=== PATIENT | female | born 1945 | race Caucasian/White ===

== ENCOUNTER 2016-09-04 13:46 | Emergency (ER) | payer BC, MEDICARE ==
[~2016-09-04] VITALS: Ht 157.5 cm; Wt 48.5 kg
[~2016-09-04 13:46] MED LIST: ALPR0.25 PO; ASPI81TA2 PO; Aspirin PO; CARV3.12 PO; CARV3.122 PO; CHOL10002 PO; CITA40TA5 PO; CLON1TAB PO; CLOP75TA27 PO; CRESTOR40 MG PO; DIAZ5TAB4 PO; DICY20TA3 PO; DOXY100T PO; FAMO20TA5 PO; FURO-68 PO; FURO20TA3 PO; HYDR-2678 PO; HYDR25TA9 PO; ISOS30TA PO; LAMO100T PO; LAMO200T3 PO; LAMO250T2 PO; LEVO100T PO; LEVO75TA PO; LEVO88TA4 PO; LIDO700A4 TP; LISI-338 PO; LISI2.5T PO; MAGN400C PO; NAPR220T90 PO; NIAC1000 PO; OMEP40CA2 PO; OXYC-323 PO; PANT40TA5 PO; POTA20TA12 PO; PREG75CA PO; RANO500T2 PO; RIVA10TA PO; RIVA20TA2 PO; SERT50TA PO; SOTA80TA PO; SUCR1TAB29 PO; TIOT18CA IH; TOPI50TA38 PO; TRAM50TA PO; TRAZ150T55 PO; VENTOLIN HFA18 GM INH; ZOLP10TA4 PO
[2016-09-04] MEDS ORDERED: FENTANYL PF 100 MCG/2 ML VIAL. IV PRN (14:15)
[2016-09-04 14:17] LABS: BASO # 0.1 x10^3/uL (0.0-0.2); BASO % 1 % (0-3); EOS % 3 % (0-3); HEMATOCRIT 37.1 % (36.0-47.0); HEMOGLOBIN 12.2 g/dL (12.0-15.5); LYMPH # 2.3 x10^3/uL (1.0-4.8); LYMPH % 30 % (24-48); MEAN CORPUSCULAR HEMOGLOBIN 27 pg (25-35); MEAN CORPUSCULAR HGB CONC 33 g/dL (31-37); MEAN CORPUSCULAR VOLUME 83 fL (79-100); MONO % 12 % (0-9); NEUT % 55 % (31-73); PLATELET COUNT 300 x10^3/uL (140-400); RED BLOOD COUNT 4.47 x10^6/uL (3.50-5.40); RED CELL DISTRIBUTION WIDTH 20.8 % (11.5-14.5); WHITE BLOOD COUNT 7.9 x10^3/uL (4.0-11.0)
[2016-09-04 14:26] LABS: INR 1.5 (0.8-1.1); PROTHROMBIN TIME PATIENT 16.9 SEC (11.7-14.0)
[2016-09-04 14:28] LABS: CALCIUM 10.5 mg/dL (8.5-10.1); CREATININE 1.9 mg/dL (0.6-1.0); GFR 26.2; POTASSIUM 3.6 mmol/L (3.5-5.1)
--- NOTE | 2016-09-04 14:36 | EKG ---
[facility] [address] [place] [address] Test Date: 2016-09-04 Test Time: 13:58:01 Pat Name: DONIS SULLIVAN Department: Room: Gender: F Machine Sprayer: : [id number] Requested By: Anila CHU Order Number: [id number] Reading MD: Maritza Royal Measurements Intervals Hoskins Rate: 65 P: 90 AK: 122 QRS: 131 QRSD: 154 T: -76 QT: 522 QTc: 544 Interpretive Statements SINUS RHYTHM ABNORMAL RIGHT AXIS DEVIATION LEFT POSTERIOR FASCICULAR BLOCK NON SPECIFIC INTRAVENTRICULAR BLOCK QRS(T) CONTOUR ABNORMALITY CONSIDER ANTEROLATERAL MYOCARDIAL DAMAGE Electronically Signed On 09-04-2016 21:08:19 CDT by Maritza Royal
[2016-09-04 15:00] VITALS: BP 111/65
[2016-09-04] MEDS ORDERED: FAMOTIDINE 20 MG/2 ML VIAL IVP ONE (15:00)
[2016-09-04] MEDS ORDERED: LIDO:MAALOX:DONNATAL 1:1:1 15 ML SINGLE DOSE SWSW ONE (15:00)
--- NOTE | 2016-09-04 15:03 | RAD ---
Portable chest, 09/04/2016: History: Chest pain Comparison is made to a study from 10/26/2015. A left-sided transvenous pacing device remains in place with multiple leads extending in the heart. There has been a previous median sternotomy. The heart size and pulmonary vascularity are normal. A nodular shadow projected over the left lateral costophrenic angle is probably a nipple shadow. No pulmonary infiltrates are seen. There is no evidence of pleural fluid. IMPRESSION: No acute cardiopulmonary abnormality is detected.
[2016-09-04 15:29] LABS: ANISOCYTOSIS MOD; OVALOCYTES MOD; PLT ESTIMATE ADEQUATE (ADEQUATE); SCHISTOCYTES OCC
[2016-09-04] MEDS ORDERED: FAMO20TA5 PO (15:51)
--- NOTE | 2016-09-04 15:52 | PHYS DOC ---
Past Medical History Past Medical History: A-Fib, Anxiety, CAD, CHF, COPD, Depression, GERD, High Cholesterol, Heart Disease, Hypertension, Hypothyroid, OH Additional Past Medical Histor: TREMORS, FRACTURED LEFT TOES. Past Surgical History: Appendectomy, Coronary Bypass Surgery, Hysterectomy, Pacemaker, Tonsillectomy, Other Additional Past Surgical Histo: thyroid,pacemaker with defib., "DOOR IN LOWER HEART" Alcohol Use: None Drug Use: None Adult General Chief Complaint Chief Complaint: CHEST PAIN HPI HPI Patient is a 70 year old female who presents with family for bilateral anterior chest wall shooting/spasm/achy pains, spasm pain through back and shoulders, and burning epigastric pain with acid taste in her mouth for the past week. Symptoms are constant with intermittent fluctuations. Has some associated nausea. Denies cough, dyspnea, palpitations, diaphoresis, exertional symptoms, lightheadedness, dizziness, headache, vision changes, vomiting, diarrhea, dysuria. Review of Systems Review of Systems Constitutional: Denies fever or chills [] Eyes: Denies change in visual acuity, redness, or eye pain [] HENT: Denies nasal congestion or sore throat [] Respiratory: Denies cough or shortness of breath [] Cardiovascular: No additional information not addressed in HPI [] GI: Denies vomiting, bloody stools or diarrhea [] : Denies dysuria or hematuria [] Musculoskeletal: Denies joint pain [] Integument: Denies rash or skin lesions [] Neurologic: Denies headache, focal weakness or sensory changes [] Endocrine: Denies polyuria or polydipsia [] Current Medications Current Medications Current Medications Medications (Trade) Dose Ordered Sig/Delfina Start Time Stop Time Status Last Admin Dose Admin Famotidine (Pepcid) 20 mg 1X ONCE 09/04/16 15:00 09/04/16 15:01 DC 09/04/16 15:02 20 MG Fentanyl Citrate (Fentanyl 2ml Vial) 50 mcg PRN Q15MIN PRN 09/04/16 14:15 09/04/16 16:08 DC 09/04/16 14:32 50 MCG Multi-Ingredient Mouthwash/Gargle (Gi Cocktail Single Dose) 15 ml 1X ONCE 09/04/16 15:00 09/04/16 15:01 DC 09/04/16 15:00 15 ML Allergies Allergies Allergies Coded Allergies Type Severity Reaction Last Updated Verified Iodinated Contrast Media - IV Dye Allergy Severe SWELLING ALL OVER, HIVES 09/27 Yes Penicillins Allergy Intermediate HIVES 09/27/14 Yes Tetanus Vaccines & Toxoid Allergy Intermediate HIVES 09/27/14 Yes Physical Exam Physical Exam Constitutional: Well developed, well nourished, mild distress, non-toxic appearance. Constantly adjusting her posture [] HENT: Normocephalic, atraumatic, bilateral external ears normal, oropharynx moist, no oral exudates, nose normal. [] Eyes: PERRLA, EOMI. [] Neck: Normal range of motion, no midline spinal tenderness, supple. Has mild bilateral trapezius tenderness [] Cardiovascular:Heart rate regular rhythm [] Lungs & Thorax: Bilateral breath sounds clear to auscultation [] Abdomen: Bowel sounds normal, soft, no tenderness. [] Skin: Warm, dry, no erythema, no rash. [] Back: No bony tenderness, no CVA tenderness. Has mild bilateral paraspinal tenderness of thorax [] Extremities: No tenderness, ROM intact, no edema. [] Neurologic: Alert and oriented X 3, normal motor function, normal sensory function, no focal deficits noted. [] Psychologic: Affect normal, judgement normal, mood normal. [] Current Patient Data Vital Signs Vital Signs Date Time Temp Pulse Resp B/P Pulse Ox O2 Delivery O2 Flow Rate FiO2 09/04/16 15:00 81 20 111/65 96 Room Air 09/04/16 13:57 98.2 98.2 Lab Values Laboratory Tests Test 09/04/16 14:00 White Blood Count 7.9x10^3/uL (4.0-11.0) Red Blood Count 4.47x10^6/uL (3.50-5.40) Hemoglobin 12.2g/dL (12.0-15.5) Hematocrit 37.1% (36.0-47.0) Mean Corpuscular Volume 83fL (79-100) Mean Corpuscular Hemoglobin 27pg (25-35) Mean Corpuscular Hemoglobin Concent 33g/dL (31-37) Red Cell Distribution Width 20.8% (11.5-14.5) H Platelet Count 300x10^3/uL (140-400) Neutrophils (%) (Auto) 55% (31-73) Lymphocytes (%) (Auto) 30% (24-48) Monocytes (%) (Auto) 12% (0-9) H Eosinophils (%) (Auto) 3% (0-3) Basophils (%) (Auto) 1% (0-3) Neutrophils # (Auto) 4.3x10^3uL (1.8-7.7) Lymphocytes # (Auto) 2.3x10^3/uL (1.0-4.8) Monocytes # (Auto) 1.0x10^3/uL (0.0-1.1) Eosinophils # (Auto) 0.2x10^3/uL (0.0-0.7) Basophils # (Auto) 0.1x10^3/uL (0.0-0.2) Platelet Estimate Adequate (ADEQUATE) Giant Platelets Occ Anisocytosis Mod Ovalocytes Mod Schistocytes Occ Prothrombin Time 16.9SEC (11.7-14.0) H Prothrombin Time INR 1.5 (0.8-1.1) H Sodium Level 140mmol/L (136-145) Potassium Level 3.6mmol/L (3.5-5.1) Chloride Level 102mmol/L (98-107) Carbon Dioxide Level 28mmol/L (21-32) Anion Gap 10 (6-14) Blood Urea Nitrogen 30mg/dL (7-20) H Creatinine 1.9mg/dL (0.6-1.0) H Estimated GFR (Cockcroft-Gault) 26.2 Glucose Level 102mg/dL (70-99) H Calcium Level 10.5mg/dL (8.5-10.1) H Troponin I Quantitative < 0.017ng/mL (0.000-0.055) [id number]-Type Natriuretic Peptide 1720pg/mL (0-124) H Laboratory Tests 09/04/16 14:00 Laboratory Tests 09/04/16 14:00 EKG EKG EKG as interpreted by me as ventricular paced, rate 65 with no ectopy Radiology/Procedures Radiology/Procedures Chest xray as interpreted by me with no acute cardiopulmonary disease process Course & Med Decision Making Course & Med Decision Making Pertinent Labs and Imaging studies reviewed. (See chart for details) Workup is unremarkable. She is feeling better after medications. Discussed she has home med of prn benzos and this would be appropriate to help treat muscle spasms. Return precautions given. She understands and agrees with plan. Dragon Disclaimer Dragon Disclaimer This electronic medical record was generated, in whole or in part, using a voice recognition dictation system. Departure Departure Impression: Primary Impression: Chest pain Additional Impressions: Epigastric abdominal pain Muscle spasm of back Disposition: HOME, SELF-CARE Condition: STABLE Referrals: NEYDA CHRISTIAN MD (PCP) Patient Instructions: Chest Pain (Nonspecific), [id number] Additional Instructions: Take famotidine for 2 weeks for worsening acid reflux symptoms. Follow up with your primary care doctor, cardiology clinic and GI clinic. Please call for appointments. Return for any concerns. Scripts Famotidine 20 Mg [id number] Mg PO BID #30 TAB Prov:Anila CHU MD 09/04/16 Problem Qualifiers Primary Impression: Chest pain Chest pain type: unspecified Qualified Code: R07.9 - Chest pain, unspecified Anila CHU MD Sep 04, 2016 15:51
== END 2016-09-04 15:55 | disposition home or self-care (01) ==
LOC: ER 13:46
DX: R07.9 Chest pain, unspecified (principal); R10.13 Epigastric pain; M62.830 Muscle spasm of back; I25.10 Atherosclerotic heart disease of native coronary artery without angina pectoris; F41.9 Anxiety disorder, unspecified; I48.91 Unspecified atrial fibrillation; I25.2 Old myocardial infarction; E03.9 Hypothyroidism, unspecified; E78.00 Pure hypercholesterolemia, unspecified; I11.0 Hypertensive heart disease with heart failure; I50.9 Heart failure, unspecified; F32.9 Major depressive disorder, single episode, unspecified; Z95.810 Presence of automatic (implantable) cardiac defibrillator; Z95.1 Presence of aortocoronary bypass graft; Z90.49 Acquired absence of other specified parts of digestive tract; Z88.0 Allergy status to penicillin; Z88.7 Allergy status to serum and vaccine; Z91.041 Radiographic dye allergy status
CPT/HCPCS: 36415; 71010; 80048; 83880; 84484; 85007; 85027; 85610; 93005; 96374; 96375; 99285; J3010; S0028

== ENCOUNTER → 2016-11-08 | Day surgery (SDC) | payer BC, MEDICARE ==
[~2016-11-08] MED LIST changes: +HYDROmorphone 2 MG/ML VIAL IV PRN; +IV RINGERS,LACTATED 1000ML 1,000 ML IV SCH; +LIDOCAINE 1% 1 ML SYRINGE. ID PRN; +LIDOCAINE 2% PF Vial for OR 5 ML VIAL. ONE; +MORPHINE SULFATE 2 MG/ML DISP.SYRIN. IV PRN; +PROCHLORPERAZINE 10 MG/2 ML VIAL. IV PRN; +PROPOFOL 20 ML IV ONE; -SOTA80TA PO; +SOTA80TA48 PO; +fentaNYL PF VIAL 100 MCG/2 ML VIAL IV PRN
[2016-11-08 13:40] VITALS: BP 153/68
== END | disposition home or self-care (01) ==
LOC: ENDOS 11:17
PROVIDERS: ATTEND Internal Medicine Gastroenterology
DX: K29.50 Unspecified chronic gastritis without bleeding (principal); Z91.09 Other allergy status, other than to drugs and biological substances; F41.9 Anxiety disorder, unspecified; F32.9 Major depressive disorder, single episode, unspecified; E78.00 Pure hypercholesterolemia, unspecified; Z82.49 Family history of ischemic heart disease and other diseases of the circulatory system; Z72.89 Other problems related to lifestyle; Z90.710 Acquired absence of both cervix and uterus
CPT/HCPCS: 43235; J2704

== ENCOUNTER → 2016-11-29 | Outpatient (CLI) | payer BC, MEDICARE ==
[2016-11-08 13:40] VITALS: BP 153/68
[~2016-11-29] MED LIST changes: +ASPI-630 PO; -ASPI81TA2 PO; -CLOP75TA27 PO; +CLOP75TA57 PO; -HYDROmorphone 2 MG/ML VIAL IV PRN; -IV RINGERS,LACTATED 1000ML 1,000 ML IV SCH; -LIDOCAINE 1% 1 ML SYRINGE. ID PRN; -LIDOCAINE 2% PF Vial for OR 5 ML VIAL. ONE; -MORPHINE SULFATE 2 MG/ML DISP.SYRIN. IV PRN; -PROCHLORPERAZINE 10 MG/2 ML VIAL. IV PRN; -PROPOFOL 20 ML IV ONE; -SUCR1TAB29 PO; +SUCR1TAB35 PO; +TRAZ150T49 PO; -TRAZ150T55 PO; -fentaNYL PF VIAL 100 MCG/2 ML VIAL IV PRN
--- NOTE | 2016-11-30 09:06 | RAD ---
Deep Doppler abdominal ultrasound of the aorta and mesenteric arteries, 11/29/2016: History: Abdominal pain Duplex evaluation was performed including grayscale, color-flow and spectral Doppler analysis. There is moderate aortic atherosclerosis. The abdominal aorta is not dilated. The celiac artery origin is patent. The peak systolic velocity at its origin was measured at 283 cm/s which is mildly elevated. A patent superior mesenteric artery could not be identified sonographically. IMPRESSION: 1. Moderate aortic atherosclerosis with nonvisualization of the superior mesenteric artery origin raising the possibility of SMA occlusion. 2. Mild velocity acceleration in the proximal celiac artery suggesting mild stenosis. 3. CT or MR angiography is suggested for further evaluation, if clinically indicated.
--- NOTE | 2016-11-30 15:26 | RAD ---
Deep Doppler abdominal ultrasound of the aorta and mesenteric arteries, 11/29/2016: History: Abdominal pain Duplex evaluation was performed including grayscale, color-flow and spectral Doppler analysis. There is moderate aortic atherosclerosis. The abdominal aorta is not dilated. The celiac artery origin is patent. The peak systolic velocity at its origin was measured at 283 cm/s which is mildly elevated. A patent superior mesenteric artery could not be identified sonographically. IMPRESSION: 1. Moderate aortic atherosclerosis with nonvisualization of the superior mesenteric artery origin raising the possibility of SMA occlusion. 2. Mild velocity acceleration in the proximal celiac artery suggesting mild stenosis. 3. CT or MR angiography is suggested for further evaluation, if clinically indicated. DICTATED and SIGNED BY: MEKHI REESE MD DATE: 11/30/16 0857 MTDD
== END | disposition home or self-care (01) ==
LOC: US 07:40
PROVIDERS: ATTEND Internal Medicine Gastroenterology
DX: R10.9 Unspecified abdominal pain (principal); I70.0 Atherosclerosis of aorta
CPT/HCPCS: 76770; 93976

== ENCOUNTER 2017-10-22 13:30 | Inpatient (IN) | payer BC ==
[2017-10-22 14:00] LABS: BILIRUBIN,URINE SMALL (NEG); CLARITY,URINE CLEAR; COLOR,URINE AMBER; GLUCOSE,URINE NEGATIVE (NEG); NITRITE,URINE NEGATIVE (NEG); PROTEIN,URINE 30 mg/dL (NEG-TRACE)
[2017-10-22 14:05] LABS: ADD MAN DIFF? NO
[2017-10-22 14:09] LABS: BASO # 0.1 x10^3/uL (0.0-0.2); BASO % 1 % (0-3); EOS # 0.2 x10^3/uL (0.0-0.7); EOS % 2 % (0-3); HEMOGLOBIN 8.1 g/dL (12.0-15.5); LYMPH # 1.4 x10^3/uL (1.0-4.8); LYMPH % 18 % (24-48); MEAN CORPUSCULAR HEMOGLOBIN 26 pg (25-35); MEAN CORPUSCULAR HGB CONC 32 g/dL (31-37); MEAN CORPUSCULAR VOLUME 81 fL (79-100); MONO # 0.7 x10^3/uL (0.0-1.1); MONO % 9 % (0-9); NEUT # 5.6 x10^3uL (1.8-7.7); NEUT % 69 % (31-73); PLATELET COUNT 387 x10^3/uL (140-400); RED BLOOD COUNT 3.07 x10^6/uL (3.50-5.40); RED CELL DISTRIBUTION WIDTH 18.8 % (11.5-14.5); WHITE BLOOD COUNT 8.1 x10^3/uL (4.0-11.0)
[2017-10-22 14:24] LABS: AMORPHOUS SEDIMENT,UR PRESENT /HPF; ANION GAP 10 (6-14); BACTERIA,URINE 0 /HPF (0-FEW); BLOOD UREA NITROGEN 13 mg/dL (7-20); BUN/CREATININE RATIO 11 (6-20); CALCIUM 9.3 mg/dL (8.5-10.1); CARBON DIOXIDE 27 mmol/L (21-32); CHLORIDE 103 mmol/L (98-107); CREATININE 1.2 mg/dL (0.6-1.0); GFR 44.4; GLUCOSE 85 mg/dL (70-99); HYALINE CASTS, URINE MANY /HPF; POTASSIUM 3.4 mmol/L (3.5-5.1); RBC,URINE 0 /HPF (0-2); SODIUM 140 mmol/L (136-145); SQUAMOUS EPITHELIAL CELL,UR FEW /LPF
[2017-10-22 14:31] LABS: ALBUMIN 3.7 g/dL (3.4-5.0); ALK PHOS 84 U/L (46-116); ALT (SGPT) 25 U/L (14-59); AST (SGOT) 19 U/L (15-37); LIPASE 85 U/L (73-393); TOTAL PROTEIN 7.3 g/dL (6.4-8.2)
[2017-10-22 14:31] LABS: TROPONINI 0.029 ng/mL (0.000-0.055)
[2017-10-22] MEDS: ONDANSETRON PF 4 MG/2 ML VIAL. IV ×2 (15:10→21:17)
[2017-10-22] MEDS: fentaNYL PF VIAL 100 MCG/2 ML VIAL IV (15:10)
[2017-10-22] MEDS: IV NORMAL SALINE 500ML BAG 500 ML IV (15:11)
[2017-10-22] MEDS: LUBIPROSTONE 8 MCG CAPSULE PO (17:51)
[2017-10-22] MEDS: PANTOPRAZOLE 40 MG TABLET.DR. PO (17:51)
[2017-10-22] MEDS: IV NORMAL SALINE 1000ML BAG 1,000 ML IV (17:53)
[2017-10-22 18:48] LABS: TROPONINI 0.031 ng/mL (0.000-0.055)
[2017-10-22] MEDS: POLYETHYLENE GLYCOL 3350 17 GM PACKET. PO (21:03)
[2017-10-22] MEDS: MORPHINE SULFATE 4 MG/ML DISP.SYRIN. IV ×2 (21:04→23:21)
[2017-10-23] MEDS ORDERED: traZODone 50 MG TABLET. PO (00:15)
[2017-10-23] MEDS: ALPRAZolam 0.25 MG TABLET PO ×2 (02:06→13:04)
[2017-10-23] MEDS: IV NORMAL SALINE 1000ML BAG 1,000 ML IV ×2 (02:07→11:10)
[2017-10-23] MEDS: traMADol 50 MG TABLET PO ×3 (02:09→18:35)
[2017-10-23 05:33] LABS: ADD MAN DIFF? NO
[2017-10-23 05:49] LABS: BASO # 0.1 x10^3/uL (0.0-0.2); BASO % 1 % (0-3); EOS # 0.2 x10^3/uL (0.0-0.7); EOS % 3 % (0-3); HEMATOCRIT 26.2 % (36.0-47.0); HEMOGLOBIN 8.1 g/dL (12.0-15.5); LYMPH # 1.6 x10^3/uL (1.0-4.8); LYMPH % 25 % (24-48); MEAN CORPUSCULAR HEMOGLOBIN 26 pg (25-35); MEAN CORPUSCULAR HGB CONC 31 g/dL (31-37); MEAN CORPUSCULAR VOLUME 83 fL (79-100); MONO # 0.7 x10^3/uL (0.0-1.1); MONO % 11 % (0-9); NEUT % 60 % (31-73); PLATELET COUNT 268 x10^3/uL (140-400); RED BLOOD COUNT 3.17 x10^6/uL (3.50-5.40); RED CELL DISTRIBUTION WIDTH 19.6 % (11.5-14.5); WHITE BLOOD COUNT 6.6 x10^3/uL (4.0-11.0)
[2017-10-23 06:08] LABS: ANION GAP 11 (6-14); BLOOD UREA NITROGEN 14 mg/dL (7-20); CALCIUM 8.8 mg/dL (8.5-10.1); CARBON DIOXIDE 24 mmol/L (21-32); CHLORIDE 106 mmol/L (98-107); CREATININE 1.1 mg/dL (0.6-1.0); GLUCOSE 73 mg/dL (70-99); POTASSIUM 3.4 mmol/L (3.5-5.1); SODIUM 141 mmol/L (136-145)
[2017-10-23] MEDS: RIVAROXABAN 15 MG TABLET. PO (08:37)
[2017-10-23] MEDS: MAGNESIUM OXIDE 400 MG TABLET PO (08:37)
[2017-10-23] MEDS: ACETAMINOPHEN 500 MG TABLET PO ×5 (08:37→23:22)
[2017-10-23] MEDS: FUROSEMIDE 40 MG TABLET. PO (08:37)
[2017-10-23] MEDS: SOTALOL 80 MG TABLET. PO ×2 (08:38→21:02)
[2017-10-23] MEDS: PANTOPRAZOLE 40 MG TABLET.DR. PO (08:38)
[2017-10-23] MEDS: LUBIPROSTONE 8 MCG CAPSULE PO ×2 (08:38→18:36)
[2017-10-23] MEDS: POTASSIUM CHLORIDE 20 MEQ TABLET.ER. PO ×2 (08:39→18:36)
[2017-10-23] MEDS: DICYCLOMINE HCL 10 MG CAPSULE PO ×3 (08:39→21:02)
[2017-10-23] MEDS: SERTRALINE 50 MG TABLET. PO (08:39)
[2017-10-23] MEDS: LEVOTHYROXINE 100 MCG TABLET PO (08:39)
[2017-10-23] MEDS: ASPIRIN CHEWABLE 81 MG TABLET. PO (08:39)
[2017-10-23] MEDS: POLYETHYLENE GLYCOL 3350 17 GM PACKET. PO ×2 (08:41→21:05)
[2017-10-23] MEDS ORDERED: FAMOTIDINE 20 MG TABLET. PO (09:00)
[2017-10-23] MEDS ORDERED: PANTOPRAZOLE 40 MG TABLET.DR. PO (09:00)
[2017-10-23] MEDS: FERROUS SULFATE 325 MG TABLET. PO (12:57)
[2017-10-23] MEDS: TOPIRAMATE 25 MG TABLET. PO (21:00)
[2017-10-23] MEDS: traZODone 50 MG TABLET. PO (21:00)
[2017-10-23] MEDS: ATORVASTATIN CALCIUM 40 MG TABLET. PO (21:00)
[2017-10-23] MEDS: lamoTRIgine 100 MG TABLET. PO (21:01)
[2017-10-24] MEDS: ACETAMINOPHEN 500 MG TABLET PO ×2 (06:00→12:00)
[2017-10-24] MEDS: LEVOTHYROXINE 100 MCG TABLET PO (07:00)
[2017-10-24] MEDS: PANTOPRAZOLE 40 MG TABLET.DR. PO (07:30)
[2017-10-24] MEDS: POTASSIUM CHLORIDE 20 MEQ TABLET.ER. PO (08:00)
[2017-10-24] MEDS: FERROUS SULFATE 325 MG TABLET. PO (08:00)
[2017-10-24] MEDS: LUBIPROSTONE 8 MCG CAPSULE PO (08:00)
[2017-10-24] MEDS: RIVAROXABAN 15 MG TABLET. PO (08:00)
[2017-10-24] MEDS: ALPRAZolam 0.25 MG TABLET PO (08:36)
[2017-10-24] MEDS: ASPIRIN CHEWABLE 81 MG TABLET. PO (09:00)
[2017-10-24] MEDS: DICYCLOMINE HCL 10 MG CAPSULE PO ×2 (09:00→14:00)
[2017-10-24] MEDS: SOTALOL 80 MG TABLET. PO (09:00)
[2017-10-24] MEDS: FUROSEMIDE 40 MG TABLET. PO (09:00)
[2017-10-24] MEDS: SERTRALINE 50 MG TABLET. PO (09:00)
[2017-10-24] MEDS: MAGNESIUM OXIDE 400 MG TABLET PO (09:00)
[2017-10-24] MEDS: POLYETHYLENE GLYCOL 3350 17 GM PACKET. PO (09:00)
== END 2017-10-24 16:44 | disposition home or self-care (01) | DRG 644 ==
LOC: ER 13:30 → 6 SOUTH 15:07
PROC: 5A09357 Assistance with Respiratory Ventilation, Less than 24 Consecutive Hours, Continuous Positive Airway Pressure (ICD-10-PCS; principal; 2017-10-23)
DX: E27.8 Other specified disorders of adrenal gland (principal); R18.8 Other ascites; R64 Cachexia; I48.2 Chronic atrial fibrillation; I11.0 Hypertensive heart disease with heart failure; G40.909 Epilepsy, unspecified, not intractable, without status epilepticus; I50.22 Chronic systolic (congestive) heart failure; D50.9 Iron deficiency anemia, unspecified; E78.5 Hyperlipidemia, unspecified; E87.6 Hypokalemia; J44.9 Chronic obstructive pulmonary disease, unspecified; K59.09 Other constipation; F17.210 Nicotine dependence, cigarettes, uncomplicated; E89.0 Postprocedural hypothyroidism; F32.9 Major depressive disorder, single episode, unspecified; F41.9 Anxiety disorder, unspecified; G89.29 Other chronic pain; I25.10 Atherosclerotic heart disease of native coronary artery without angina pectoris; Z87.01 Personal history of pneumonia (recurrent); K21.9 Gastro-esophageal reflux disease without esophagitis; G43.909 Migraine, unspecified, not intractable, without status migrainosus; M19.90 Unspecified osteoarthritis, unspecified site; K57.90 Diverticulosis of intestine, part unspecified, without perforation or abscess without bleeding; K58.9 Irritable bowel syndrome, unspecified; Z81.8 Family history of other mental and behavioral disorders; Z83.3 Family history of diabetes mellitus; Z90.49 Acquired absence of other specified parts of digestive tract; Z90.710 Acquired absence of both cervix and uterus; Z95.0 Presence of cardiac pacemaker; Z95.1 Presence of aortocoronary bypass graft; Z88.0 Allergy status to penicillin; Z88.7 Allergy status to serum and vaccine; Z88.8 Allergy status to other drugs, medicaments and biological substances; I25.2 Old myocardial infarction; Z68.20 Body mass index [BMI] 20.0-20.9, adult
CPT/HCPCS: 36415; 74176; 78264; 80048; 80053; 81001; 83690; 84484; 85025; 87086; 93005; 96361; 96374; 96375; 99285; 99285-25; A9541; J2270; J2405; J3010; J7030; J7040

== ENCOUNTER 2017-11-18 12:38 | Emergency (ER) | payer BC ==
[2017-11-18 15:01] LABS: ADD MAN DIFF? NO
[2017-11-18 15:03] LABS: BASO % 1 % (0-3); EOS # 0.1 x10^3/uL (0.0-0.7); EOS % 1 % (0-3); HEMOGLOBIN 9.6 g/dL (12.0-15.5); LYMPH # 1.4 x10^3/uL (1.0-4.8); LYMPH % 17 % (24-48); MEAN CORPUSCULAR HEMOGLOBIN 26 pg (25-35); MEAN CORPUSCULAR HGB CONC 31 g/dL (31-37); MEAN CORPUSCULAR VOLUME 84 fL (79-100); MONO # 0.6 x10^3/uL (0.0-1.1); MONO % 8 % (0-9); NEUT # 5.7 x10^3uL (1.8-7.7); NEUT % 74 % (31-73); PLATELET COUNT 374 x10^3/uL (140-400); RED CELL DISTRIBUTION WIDTH 26.1 % (11.5-14.5); WHITE BLOOD COUNT 7.8 x10^3/uL (4.0-11.0)
[2017-11-18 15:14] LABS: ANION GAP 13 (6-14); BLOOD UREA NITROGEN 25 mg/dL (7-20); BUN/CREATININE RATIO 18 (6-20); CALCIUM 9.8 mg/dL (8.5-10.1); CARBON DIOXIDE 26 mmol/L (21-32); CHLORIDE 99 mmol/L (98-107); CREATININE 1.4 mg/dL (0.6-1.0); GFR 37.1; GLUCOSE 85 mg/dL (70-99); POTASSIUM 3.7 mmol/L (3.5-5.1); SODIUM 138 mmol/L (136-145)
[2017-11-18 15:20] LABS: ALBUMIN 3.7 g/dL (3.4-5.0); ALK PHOS 84 U/L (46-116); ALT (SGPT) 26 U/L (14-59); AST (SGOT) 36 U/L (15-37); TOTAL BILIRUBIN 0.8 mg/dL (0.2-1.0); TOTAL PROTEIN 7.4 g/dL (6.4-8.2)
[2017-11-18 16:31] LABS: PLT ESTIMATE ADEQUATE (ADEQUATE); POLYCHROMASIA PRESENT
[2017-11-18 16:32] LABS: ANISOCYTOSIS MOD; BILIRUBIN,URINE SMALL (NEG); CLARITY,URINE CLEAR; COLOR,URINE YELLOW; GLUCOSE,URINE NEGATIVE (NEG); NITRITE,URINE NEGATIVE (NEG); POIKILOCYTOSIS SLIGHT; PROTEIN,URINE 30 mg/dL (NEG-TRACE); UROBILINOGEN,URINE 0.2 mg/dL (0.2 mg/dL)
[2017-11-18 16:35] LABS: SCHISTOCYTES OCC
[2017-11-18 16:44] LABS: BACTERIA,URINE FEW /HPF (0-FEW); HYALINE CASTS, URINE MODERATE /HPF; RBC,URINE 0 /HPF (0-2)
== END 2017-11-18 17:20 | disposition home or self-care (01) ==
LOC: ER 12:38
DX: R25.1 Tremor, unspecified (principal); I48.91 Unspecified atrial fibrillation; I50.9 Heart failure, unspecified; J44.9 Chronic obstructive pulmonary disease, unspecified; K21.9 Gastro-esophageal reflux disease without esophagitis; I11.0 Hypertensive heart disease with heart failure; I25.2 Old myocardial infarction; E03.9 Hypothyroidism, unspecified; Z90.49 Acquired absence of other specified parts of digestive tract; Z95.1 Presence of aortocoronary bypass graft; Z88.8 Allergy status to other drugs, medicaments and biological substances; I25.810 Atherosclerosis of coronary artery bypass graft(s) without angina pectoris
CPT/HCPCS: 36415; 71045; 80053; 81001; 85025; 93005; 99285